=== PATIENT | female | born 1995 | race Caucasian/White ===

== ENCOUNTER → 2017-08-01 | Outpatient (CLI) | payer BC ==
[~2017-08-01] MED LIST: Colace100 MG PO; Esgic Tablet1 EACH PO; IBUP800 PO; ONDA4 PO; Zofran Odt4 MG SL
== END ==
LOC: LAB 12:35
PROVIDERS: Obstetrics & Gynecology
DX: Z34.81 Encounter for supervision of other normal pregnancy, first trimester (principal)
CPT/HCPCS: 87491; 87591; 87661

== ENCOUNTER → 2018-01-06 | Outpatient (CLI) | payer BC, OTHER ==
[~2018-01-06] MED LIST changes: -Colace100 MG PO; -IBUP800 PO
== END | disposition home or self-care (01) ==
LOC: LAB 13:46 → LAB SHORT 13:46
DX: Z34.80 Encounter for supervision of other normal pregnancy, unspecified trimester (principal)
CPT/HCPCS: 87081; 87653

== ENCOUNTER → 2018-01-12 | Outpatient (CLI) | payer BC, OTHER ==
[2018-01-12 16:08] LABS: Source, Urine Clean Catch
[2018-01-12 17:52] LABS: Bilirubin, Urine Neg (Neg); Blood, Urine Neg (Neg); Glucose Qualitative, Urine Neg (Neg); Ketones, Urine Neg (Neg); Leukocyte Esterase, Urine 1+ (Neg); Nitrite, Urine Neg (Neg); Protein, Urine Neg (Neg); Specific Gravity, Urine 1.015 (1.003-1.022); Urobilinogen, Urine NORM (Normal)
[2018-01-12 18:03] LABS: Appearance, Urine Clear (Clear); Color, Urine Yellow (P-Yellow)
[2018-01-12 18:04] LABS: Bacteria Mod /hpf; Red Blood Cells, Urine Not Seen /hpf (0-2); Squamous Epithelial Cells Mod /hpf (Few); White Blood Cells, Urine Not Seen /hpf (0-5)
== END ==
LOC: LAB 14:27 → LAB SHORT 14:27
PROVIDERS: Advanced Practice Midwife
DX: R82.99 Other abnormal findings in urine (principal)
CPT/HCPCS: 81001

== ENCOUNTER 2018-01-25 14:25 | Inpatient (IN) | payer BC, OTHER ==
[~2018-01-25] VITALS: Ht 175.3 cm; Wt 83.0 kg
[2018-01-25 15:25] LABS: BASOPHILS ABSOLUTE AUTO 0.02 K/mm3 (0.00-0.23); BASOPHILS PERCENT AUTO 0 % (0-2); EOSINOPHILS ABSOLUTE AUTO 0.07 K/mm3 (0.00-0.68); EOSINOPHILS PERCENT AUTO 1 % (0-6); Hematocrit 30.8 % (33.0-51.0); IMMATURE GRAN ABSOLUTE AUTO 0.02 K/mm3 (0.00-0.10); IMMATURE GRAN PERCENT AUTO 0 % (0-1); LYMPHOCYTES ABSOLUTE AUTO 1.52 K/mm3 (0.84-5.20); LYMPHOCYTES PERCENT AUTO 19 % (21-46); MONOCYTES ABSOLUTE AUTO 0.77 K/mm3 (0.16-1.47); MONOCYTES PERCENT AUTO 10 % (4-13); Mean Corpuscular HGB 27.7 pg (26.0-34.0); Mean Corpuscular HGB Conc 32.5 g/dL (31.5-36.5); Mean Corpuscular Volume 85 fL (80-100); Mean Platelet Volume 9.2 fL (9.1-12.4); NEUTROPHILS ABSOLUTE AUTO 5.63 K/mm3 (1.96-9.15); NEUTROPHILS PERCENT AUTO 70 % (41-73); Platelet Count 274 K/mm3 (150-400); RDW Coefficient Variation 13.4 % (11.7-14.2); RDW Standard Deviation 42.3 fL (35.1-46.3); Red Blood Cell Count 3.61 M/mm3 (3.80-5.20); White Blood Cell Count 8.03 K/mm3 (4.00-11.30)
[2018-01-27 05:50] LABS: Mean Corpuscular HGB 27.7 pg (26.0-34.0); Mean Corpuscular HGB Conc 32.3 g/dL (31.5-36.5); Mean Corpuscular Volume 86 fL (80-100); Mean Platelet Volume 9.4 fL (9.1-12.4); Platelet Count 263 K/mm3 (150-400); RDW Coefficient Variation 13.6 % (11.7-14.2); RDW Standard Deviation 42.4 fL (35.1-46.3); Red Blood Cell Count 3.61 M/mm3 (3.80-5.20); White Blood Cell Count 8.82 K/mm3 (4.00-11.30)
[2018-01-27] MEDS ORDERED: Colace100 MG PO (09:51)
[2018-01-27] MEDS ORDERED: IBUP800 PO (09:51)
== END 2018-01-27 15:40 | disposition home or self-care (01) | DRG 775 ==
LOC: OBS 14:25 → BC 14:31 → OBS 14:42 → BC 14:43
PROVIDERS: Advanced Practice Midwife
PROC: 10E0XZZ Delivery of Products of Conception, External Approach (ICD-10-PCS; principal; 2018-01-26)
DX: O42.90 Premature rupture of membranes, unspecified as to length of time between rupture and onset of labor, unspecified weeks of gestation (principal); O99.02 Anemia complicating childbirth; Z3A.39 39 weeks gestation of pregnancy; O99.03 Anemia complicating the puerperium; F31.9 Bipolar disorder, unspecified; F41.9 Anxiety disorder, unspecified; F90.9 Attention-deficit hyperactivity disorder, unspecified type; O99.344 Other mental disorders complicating childbirth; O36.8330 Maternal care for abnormalities of the fetal heart rate or rhythm, third trimester, not applicable or unspecified; O69.81X0 Labor and delivery complicated by cord around neck, without compression, not applicable or unspecified; Z37.0 Single live birth
CPT/HCPCS: 36415; 51702; 81003; 85025; 85027; J2590; J7120

== ENCOUNTER → 2018-06-22 | Outpatient (CLI) | payer BC, OTHER ==
[~2018-06-22] MED LIST changes: +Colace100 MG PO; +IBUP800 PO
[2018-06-29 17:07] LABS: CHLAMYDIA BY NAA Negative (Negative); GONOCOCCUS BY NAA Negative (Negative); TRICH VAG BY NAA Negative (Negative)
== END | disposition home or self-care (01) ==
LOC: LAB SHORT 10:29 → LAB 10:29
PROVIDERS: Advanced Practice Midwife
DX: Z01.419 Encounter for gynecological examination (general) (routine) without abnormal findings (principal); Z11.3 Encounter for screening for infections with a predominantly sexual mode of transmission
CPT/HCPCS: 87491; 87591; 87661; G0123

== ENCOUNTER → 2023-07-01 | Outpatient (CLI) | payer BC, OTHER ==
[2023-07-01 15:43] LABS: BASOPHILS ABSOLUTE AUTO 0.04 K/mm3 (0.00-0.23); BASOPHILS PERCENT AUTO 1 % (0-2); EOSINOPHILS ABSOLUTE AUTO 0.09 K/mm3 (0.00-0.68); EOSINOPHILS PERCENT AUTO 1 % (0-6); Hematocrit 38.9 % (33.0-51.0); Hemoglobin 12.9 g/dL (11.5-16.0); IMMATURE GRAN ABSOLUTE AUTO 0.02 K/mm3 (0.00-0.10); IMMATURE GRAN PERCENT AUTO 0 % (0-1); LYMPHOCYTES ABSOLUTE AUTO 1.95 K/mm3 (0.84-5.20); LYMPHOCYTES PERCENT AUTO 25 % (21-46); MONOCYTES ABSOLUTE AUTO 0.65 K/mm3 (0.16-1.47); MONOCYTES PERCENT AUTO 9 % (4-13); Mean Corpuscular HGB 29.3 pg (26.0-34.0); Mean Corpuscular HGB Conc 33.2 g/dL (31.5-36.5); Mean Corpuscular Volume 88 fL (80-100); NEUTROPHILS ABSOLUTE AUTO 4.92 K/mm3 (1.96-9.15); NEUTROPHILS PERCENT AUTO 64 % (41-73); Platelet Count 369 K/mm3 (150-400); RDW Coefficient Variation 13.2 % (11.7-14.2); RDW Standard Deviation 42.5 fL (35.1-46.3); Red Blood Cell Count 4.41 M/mm3 (3.80-5.20); White Blood Cell Count 7.67 K/mm3 (4.00-11.30)
[2023-07-01 16:03] LABS: Alanine Aminotransfer (ALT/SGP 28 U/L (12-78); Albumin/Globulin Ratio 0.9 (0.8-1.8); Alk Phos 58 U/L (50-136); Anion Gap 5 mmol/L (6-16); Aspartate Aminotrans (AST/SGOT 17 U/L (12-37); Bilirubin, Total 0.4 mg/dL (0.1-1.0); Blood Urea Nitrogen 6 mg/dL (8-24); Bun/Creatinine Ratio 9.7 (12.0-20.0); CHOL/HDL RATIO 3.1; CO2, Blood 27 mmol/L (21-32); Calcium, Blood 8.9 mg/dL (8.5-10.1); Chloride, Blood 107 mmol/L (98-108); Cholesterol 201 mg/dL (50-200); Creatinine, Blood 0.62 mg/dL (0.40-1.00); Globulin, Blood 4.5 g/dL (2.2-4.0); Glomerular Filtration Rate 126 (60-); Glucose, Blood 96 mg/dL (70-99); HDL Cholesterol 65 mg/dL (>39); LDL/HDL RATIO 1.9; Low Density Lipoprotein Chol 121 mg/dL (0-110); Potassium, Blood 3.7 mmol/L (3.5-5.5); Sodium, Blood 139 mmol/L (136-145); Total Protein, Blood 8.5 g/dL (6.4-8.2); Triglycerides 74 mg/dL (30-140); Very Low Density Lipoprot Chol 14 mg/dL (6-28)
[2023-07-03 08:04] LABS: HIV 1,2 COMBO ANTIGEN/ANTIBODY Negative (Negative)
== END ==
LOC: LAB SHORT 10:25 → LAB 10:25
PROVIDERS: Family Medicine
DX: Z00.00 Encounter for general adult medical examination without abnormal findings (principal)
CPT/HCPCS: 80053; 80061; 84443; 85025; 87389

== ENCOUNTER 2025-04-22 10:02 | Emergency (ER) | payer BC ==
[~2025-04-22] VITALS: Ht 175.3 cm; Wt 81.7 kg
[2025-04-22 11:03] LABS: Source, Urine Clean Catch
[2025-04-22 11:04] LABS: BASOPHILS ABSOLUTE AUTO 0.06 K/mm3 (0.00-0.23); BASOPHILS PERCENT AUTO 1 % (0-2); EOSINOPHILS ABSOLUTE AUTO 0.14 K/mm3 (0.00-0.68); EOSINOPHILS PERCENT AUTO 2 % (0-6); Hematocrit 38.4 % (33.0-51.0); Hemoglobin 13.0 g/dL (11.5-16.0); IMMATURE GRAN ABSOLUTE AUTO 0.02 K/mm3 (0.00-0.10); IMMATURE GRAN PERCENT AUTO 0 % (0-1); LYMPHOCYTES ABSOLUTE AUTO 2.15 K/mm3 (0.84-5.20); LYMPHOCYTES PERCENT AUTO 32 % (21-46); MONOCYTES ABSOLUTE AUTO 0.66 K/mm3 (0.16-1.47); MONOCYTES PERCENT AUTO 10 % (4-13); Mean Corpuscular HGB Conc 33.9 g/dL (31.5-36.5); Mean Corpuscular Volume 89 fL (80-100); NEUTROPHILS ABSOLUTE AUTO 3.80 K/mm3 (1.96-9.15); NEUTROPHILS PERCENT AUTO 56 % (41-73); NRBC ABSOLUTE 0.00 K/mm3 (0.00-0.02); NRBC Auto 0.0 /100 WBC (0.0-0.2); Platelet Count 355 K/mm3 (150-400); RDW Coefficient Variation 12.6 % (11.7-14.2); RDW Standard Deviation 41.3 fL (35.1-46.3)
[2025-04-22 11:40] LABS: Alanine Aminotransfer (ALT/SGP 23.0 U/L (12-78); Albumin, Blood 4.0 g/dL (3.4-5.0); Albumin/Globulin Ratio 1.0 (0.8-1.8); Anion Gap 7.0 mmol/L (3-11); Aspartate Aminotrans (AST/SGOT 19.0 U/L (12-37); Beta HCG, Quantitative, Serum 50.0 mIU/mL (0-3); Bilirubin, Total 0.4 mg/dL (0.1-1.0); Blood Urea Nitrogen 6.0 mg/dL (8-24); CO2, Blood 27.0 mmol/L (21-32); Calcium, Blood 9.0 mg/dL (8.5-10.1); Chloride, Blood 107.0 mmol/L (98-108); Creatinine, Blood 0.57 mg/dL (0.40-1.00); Globulin, Blood 4.0 g/dL (2.2-4.0); Glucose, Blood 95.0 mg/dL (70-99); Potassium, Blood 3.9 mmol/L (3.5-5.5); Sodium, Blood 137.0 mmol/L (136-145); Total Protein, Blood 8.0 g/dL (6.4-8.2)
[2025-04-22 12:08] LABS: Bilirubin, Urine Neg (Neg); Color, Urine Red (P-Yellow); Glucose Qualitative, Urine Neg (Neg); Ketones, Urine Neg (Neg); Leukocyte Esterase, Urine Neg (Neg); Protein, Urine 3+ (Neg); Specific Gravity, Urine 1.020 (1.003-1.022); Urobilinogen, Urine 1+ (Normal)
[2025-04-22 12:32] LABS: Red Blood Cells, Urine TNTC /hpf (0-2)
[2025-04-22 13:30] VITALS: BP 118/64
== END 2025-04-22 13:45 | disposition home or self-care (01) ==
LOC: ER 10:02
PROVIDERS: Physician Assistant
DX: O20.9 Hemorrhage in early pregnancy, unspecified (principal); O99.331 Smoking (tobacco) complicating pregnancy, first trimester
CPT/HCPCS: 80053; 81001; 84702; 85025; 86850; 86900; 86901; 99284